=== PATIENT | female | born 1950 | race Caucasian/White ===

== ENCOUNTER 2021-06-20 13:04 | Outpatient (CLI) | payer MEDICARE ==
[2021-06-21 01:33] LABS: SARS-CoV-2 PCR by NAA Not Detected (NotDetected)
== END 2021-06-20 13:05 | disposition home or self-care (01) ==
LOC: CSHLAB 13:04
PROVIDERS: ATTEND Internal Medicine Critical Care Medicine
DX: Z20.822 Contact with and (suspected) exposure to COVID-19 (principal)
CPT/HCPCS: U0003; U0005

== ENCOUNTER 2022-08-18 09:17 | Outpatient (CLI) | payer MEDICARE | END 2022-08-18 09:18 | disposition home or self-care (01) | LOC: CSHWCC 09:17 | PROVIDERS: ATTEND Nurse Practitioner Family | DX: I87.311 Chronic venous hypertension (idiopathic) with ulcer of right lower extremity (principal); L97.819 Non-pressure chronic ulcer of other part of right lower leg with unspecified severity; R60.0 Localized edema | CPT/HCPCS: 11042; 97139; G0463; 99203 ==

== ENCOUNTER 2022-10-01 13:06 | Outpatient (CLI) | payer MEDICARE | END 2022-10-01 13:07 | disposition home or self-care (01) | LOC: CSHWCC 13:06 | PROVIDERS: ATTEND Nurse Practitioner Family | DX: I87.311 Chronic venous hypertension (idiopathic) with ulcer of right lower extremity (principal); L97.819 Non-pressure chronic ulcer of other part of right lower leg with unspecified severity; R60.0 Localized edema ==

== ENCOUNTER 2022-10-16 14:32 | Outpatient (CLI) | payer MEDICARE | END 2022-10-16 14:33 | disposition home or self-care (01) | LOC: CSHWCC 14:32 | PROVIDERS: ATTEND Nurse Practitioner Family | DX: I87.311 Chronic venous hypertension (idiopathic) with ulcer of right lower extremity (principal); L97.819 Non-pressure chronic ulcer of other part of right lower leg with unspecified severity; R60.0 Localized edema ==

== ENCOUNTER 2022-11-21 12:04 | Outpatient (CLI) | payer MEDICARE | END 2022-11-21 12:05 | disposition home or self-care (01) | LOC: CSHWCC 12:04 | PROVIDERS: ATTEND Nurse Practitioner Family | DX: I87.311 Chronic venous hypertension (idiopathic) with ulcer of right lower extremity (principal); L97.819 Non-pressure chronic ulcer of other part of right lower leg with unspecified severity; R60.0 Localized edema ==

== ENCOUNTER 2022-12-05 13:12 | Outpatient (CLI) | payer MEDICARE | END 2022-12-05 13:13 | disposition home or self-care (01) | LOC: CSHWCC 13:12 | PROVIDERS: ATTEND Nurse Practitioner Family | DX: I87.311 Chronic venous hypertension (idiopathic) with ulcer of right lower extremity (principal); L97.819 Non-pressure chronic ulcer of other part of right lower leg with unspecified severity; R60.0 Localized edema | CPT/HCPCS: 29581; 97139; G0463; 99213 ==

== ENCOUNTER 2022-12-05 13:48 | Outpatient (CLI) | payer MEDICARE | END 2022-12-05 13:49 | disposition home or self-care (01) | LOC: CSHWCC 13:48 | PROVIDERS: ATTEND Nurse Practitioner Family | DX: I87.311 Chronic venous hypertension (idiopathic) with ulcer of right lower extremity (principal); L97.819 Non-pressure chronic ulcer of other part of right lower leg with unspecified severity; R60.0 Localized edema | CPT/HCPCS: 29581 ==

== ENCOUNTER 2022-12-19 09:56 | Outpatient (CLI) | payer MEDICARE | END 2022-12-19 09:57 | disposition home or self-care (01) | LOC: CSHWCC 09:56 | PROVIDERS: ATTEND Nurse Practitioner Family | DX: S81.801D Unspecified open wound, right lower leg, subsequent encounter (principal); S91.104D Unspecified open wound of right lesser toe(s) without damage to nail, subsequent encounter; R60.0 Localized edema | CPT/HCPCS: 29581 ==

== ENCOUNTER 2023-01-26 04:20 | Inpatient (IN) | payer MEDICARE ==
[2023-01-26] MEDS ORDERED: diphenhydrAMINE 50 MG/ML VIAL ONE (04:38)
[2023-01-26 04:50] LABS: #Eosinphils 0.2 10x3/uL (0.0-0.5); #Monocytes 0.6 10x3/uL (0.0-1.1); #Neutrophils 6.4 10x3/uL (1.5-8.4); %Basophils 0.2 % (0.0-2.0); %Eosinophils 2.8 % (0.0-6.0); %Lymphocytes 15.9 % (18.0-47.0); %Monocytes 7.2 % (0.0-10.0); %Neutrophils 73.4 % (40.0-75.0); Hemoglobin 12.7 g/dL (12.0-15.5); Mean Corpuscular HGB CONC 32.5 g/dL (32.0-36.0); Mean Corpuscular Hemoglobin 27.4 pg (27.0-33.0); Mean Corpuscular Volume 84.3 fl (81.6-98.3); Mean Platelet Volume 10.2 fl (7.4-10.4); Platelet Count 266 10x3/uL (150-450); RBC Distribution Width 16.1 % (11.5-14.5); Red Blood Cell (RBC) Count 4.64 10x6/uL (3.90-5.03); White Blood Cell (WBC) Count 8.7 10x3/uL (3.5-10.5)
[2023-01-26 05:06] LABS: PTT 25.6 sec (22.0-33.0); Prothrombin Time 10.5 sec (9.5-12.1)
[2023-01-26 05:11] LABS: ALT (SGPT) 13 U/L (8-55); AST (SGOT) 13 U/L (5-34); Albumin 3.5 g/dL (3.4-4.8); Alkaline Phosphatase 81 U/L (40-110); Anion Gap 17 mmol/L (10-20); BUN (Urea Nitrogen) 16 mg/dL (9.8-20.1); Calc. Creatinine Clearance 0 mL/min (70-130); Calcium 9.2 mg/dL (7.8-10.44); Carbon Dioxide 27 mmol/L (23-31); Chloride 100 mmol/L (98-107); Estimated GFR 86; Globulin 2.3 g/dL (2.4-3.5); Glucose 104 mg/dL (83-110); Potassium 4.3 mmol/L (3.5-5.1); Protein, Total 5.8 g/dL (5.8-8.1); Sodium 140 mmol/L (136-145)
[2023-01-26] MEDS ORDERED: Heparin 5,000 UNITS/ML VIAL ONE (05:17)
[2023-01-26] MEDS ORDERED: Heparin 1,000 UNITS/ML VIAL ONE (05:18)
[2023-01-26] MEDS ORDERED: Heparin 25,000 units/D5W 500 ML ONE (05:18)
[2023-01-26] MEDS ORDERED: Ondansetron ODT 4 MG TAB PO PRN ×2 (08:14→12:54)
[2023-01-26] MEDS ORDERED: Ondansetron PF 4 MG/2 ML Vial IVP PRN (08:14)
[2023-01-26] MEDS ORDERED: Heparin 10,000 UNITS/ 10 ML VIAL SLOW IVP SCH (08:30)
[2023-01-26 08:43] VITALS: BMI 36.2
[2023-01-26] MEDS: Heparin 25,000 units/D5W 500 ML IVPB SCH (09:00)
[2023-01-26 09:24] LABS: Hemoglobin 12.3 g/dL (12.0-15.5); Platelet Count 299 10x3/uL (150-450)
[2023-01-26] MEDS ORDERED: HYDROcodone/Acetaminophen 5/325 mg Tablet PO PRN (09:29)
[2023-01-26] MEDS ORDERED: Iopamidol 370 76% 100 ML VIAL ONE (09:46)
[2023-01-26] MEDS ORDERED: tiZANidine HCl 4 MG TAB PO PRN (10:32)
[2023-01-26] MEDS ORDERED: Furosemide 40 MG TAB PO SCH (10:45)
[2023-01-26] MEDS: Raloxifene 60 MG TAB PO SCH (11:53)
[2023-01-26] MEDS ORDERED: Diphenoxylate HCl/Atropine Tablet PO PRN (12:51)
[2023-01-26] MEDS ORDERED: HYDROcodone/Acetaminophen 10/325 mg Tablet PO PRN (12:51)
[2023-01-26] MEDS: Gabapentin 300 MG CAP PO SCH ×2 (14:10→20:38)
[2023-01-26] MEDS: Pramipexole Di-HCl 1 MG TAB PO SCH ×2 (14:44→20:38)
[2023-01-26] MEDS: Acetaminophen 325 MG TAB PO PRN (18:09)
[2023-01-26] MEDS ORDERED: Lidocaine 4% Patch TD SCH (19:30)
[2023-01-26] MEDS: DULoxetine 20 MG CAP PO SCH (20:38)
[2023-01-26] MEDS: Atorvastatin Calcium 10 MG TAB PO SCH (20:38)
[2023-01-27 01:28] LABS: #Eosinphils 0.3 10x3/uL (0.0-0.5); #Monocytes 0.5 10x3/uL (0.0-1.1); #Neutrophils 3.9 10x3/uL (1.5-8.4); %Basophils 0.3 % (0.0-2.0); %Lymphocytes 20.5 % (18.0-47.0); %Monocytes 8.4 % (0.0-10.0); %Neutrophils 65.1 % (40.0-75.0); Hemoglobin 11.6 g/dL (12.0-15.5); Mean Corpuscular HGB CONC 32.4 g/dL (32.0-36.0); Mean Corpuscular Hemoglobin 27.5 pg (27.0-33.0); Mean Corpuscular Volume 84.8 fl (81.6-98.3); Mean Platelet Volume 9.8 fl (7.4-10.4); Platelet Count 275 10x3/uL (150-450); RBC Distribution Width 16.2 % (11.5-14.5); Red Blood Cell (RBC) Count 4.22 10x6/uL (3.90-5.03)
[2023-01-27 01:42] LABS: Anion Gap 14 mmol/L (10-20); BUN (Urea Nitrogen) 11 mg/dL (9.8-20.1); Calc. Creatinine Clearance 103 mL/min (70-130); Calcium 8.7 mg/dL (7.8-10.44); Carbon Dioxide 29 mmol/L (23-31); Chloride 101 mmol/L (98-107); Estimated GFR 92; Glucose 107 mg/dL (83-110); Potassium 3.8 mmol/L (3.5-5.1); Sodium 140 mmol/L (136-145)
[2023-01-27] MEDS: Heparin 25,000 units/D5W 500 ML IVPB SCH (03:27)
[2023-01-27] MEDS: DULoxetine 20 MG CAP PO SCH ×2 (10:15→23:38)
[2023-01-27] MEDS: Saccharomyces boulardii 250 MG CAP PO SCH (10:16)
[2023-01-27] MEDS: Gabapentin 300 MG CAP PO SCH ×3 (10:16→23:37)
[2023-01-27] MEDS: Raloxifene 60 MG TAB PO SCH (10:17)
[2023-01-27] MEDS: Furosemide 40 MG TAB PO SCH (10:17)
[2023-01-27] MEDS: Torsemide 20 MG TAB PO SCH (10:18)
[2023-01-27] MEDS: Pramipexole Di-HCl 1 MG TAB PO SCH ×3 (10:18→23:37)
[2023-01-27] MEDS: Ferrous Sulfate 325 MG TAB PO SCH (10:24)
[2023-01-27] MEDS ORDERED: Communication Order-Pharmacy FS SCH (14:35)
[2023-01-27 15:08] LABS: Hemoglobin 13.1 g/dL (12.0-15.5); Platelet Count 293 10x3/uL (150-450)
[2023-01-27] MEDS: Acetaminophen 325 MG TAB PO PRN (16:19)
[2023-01-27] MEDS: Atorvastatin Calcium 10 MG TAB PO SCH (23:38)
[2023-01-28 05:50] LABS: #Eosinphils 0.4 10x3/uL (0.0-0.5); #Monocytes 0.4 10x3/uL (0.0-1.1); #Neutrophils 3.5 10x3/uL (1.5-8.4); %Basophils 0.4 % (0.0-2.0); %Eosinophils 6.4 % (0.0-6.0); %Lymphocytes 22.9 % (18.0-47.0); %Monocytes 7.6 % (0.0-10.0); Hemoglobin 12.3 g/dL (12.0-15.5); Mean Corpuscular HGB CONC 32.5 g/dL (32.0-36.0); Mean Corpuscular Hemoglobin 27.2 pg (27.0-33.0); Mean Corpuscular Volume 83.7 fl (81.6-98.3); Mean Platelet Volume 9.4 fl (7.4-10.4); Platelet Count 304 10x3/uL (150-450); RBC Distribution Width 15.8 % (11.5-14.5); Red Blood Cell (RBC) Count 4.53 10x6/uL (3.90-5.03); White Blood Cell (WBC) Count 5.6 10x3/uL (3.5-10.5)
[2023-01-28 06:05] LABS: Anion Gap 16 mmol/L (10-20); BUN (Urea Nitrogen) 14 mg/dL (9.8-20.1); Calc. Creatinine Clearance 101 mL/min (70-130); Calcium 9.2 mg/dL (7.8-10.44); Carbon Dioxide 29 mmol/L (23-31); Chloride 98 mmol/L (98-107); Estimated GFR 91; Glucose 94 mg/dL (83-110); Potassium 3.8 mmol/L (3.5-5.1); Sodium 139 mmol/L (136-145)
[2023-01-28 08:40] LABS: Hemoglobin 12.1 g/dL (12.0-15.5); Platelet Count 317 10x3/uL (150-450)
[2023-01-28] MEDS: Ferrous Sulfate 325 MG TAB PO SCH (09:07)
[2023-01-28] MEDS: Gabapentin 300 MG CAP PO SCH ×3 (09:07→21:48)
[2023-01-28] MEDS: Furosemide 40 MG TAB PO SCH (09:08)
[2023-01-28] MEDS: Saccharomyces boulardii 250 MG CAP PO SCH (09:08)
[2023-01-28] MEDS: Torsemide 20 MG TAB PO SCH (09:09)
[2023-01-28] MEDS: Pramipexole Di-HCl 1 MG TAB PO SCH ×3 (09:11→21:57)
[2023-01-28] MEDS: DULoxetine 20 MG CAP PO SCH ×2 (09:16→21:57)
[2023-01-28] MEDS: Transdermal Patch Removal TOP SCH (09:19)
[2023-01-28] MEDS: Raloxifene 60 MG TAB PO SCH (13:17)
[2023-01-28] MEDS: Apixaban 5 MG TAB PO SCH (21:48)
[2023-01-28] MEDS: Atorvastatin Calcium 10 MG TAB PO SCH (21:49)
[2023-01-28] MEDS: Acetaminophen 325 MG TAB PO PRN (21:56)
[2023-01-28] MEDS: Lidocaine 4% Patch TD PRN (22:02)
[2023-01-29 05:33] LABS: #Eosinphils 0.3 10x3/uL (0.0-0.5); #Monocytes 0.5 10x3/uL (0.0-1.1); #Neutrophils 3.3 10x3/uL (1.5-8.4); %Basophils 0.4 % (0.0-2.0); %Eosinophils 5.5 % (0.0-6.0); %Lymphocytes 22.9 % (18.0-47.0); %Monocytes 9.4 % (0.0-10.0); %Neutrophils 61.1 % (40.0-75.0); Hemoglobin 12.3 g/dL (12.0-15.5); Mean Corpuscular HGB CONC 32.3 g/dL (32.0-36.0); Mean Corpuscular Hemoglobin 27.3 pg (27.0-33.0); Mean Corpuscular Volume 84.7 fl (81.6-98.3); Mean Platelet Volume 9.5 fl (7.4-10.4); Platelet Count 345 10x3/uL (150-450); RBC Distribution Width 15.8 % (11.5-14.5); White Blood Cell (WBC) Count 5.4 10x3/uL (3.5-10.5)
[2023-01-29 05:47] LABS: Anion Gap 17 mmol/L (10-20); BUN (Urea Nitrogen) 16 mg/dL (9.8-20.1); Calc. Creatinine Clearance 101 mL/min (70-130); Calcium 9.1 mg/dL (7.8-10.44); Carbon Dioxide 28 mmol/L (23-31); Chloride 98 mmol/L (98-107); Estimated GFR 91; Glucose 99 mg/dL (83-110); Potassium 3.5 mmol/L (3.5-5.1); Sodium 139 mmol/L (136-145)
[2023-01-29] MEDS: Apixaban 5 MG TAB PO SCH ×2 (09:12→20:18)
[2023-01-29] MEDS: Pramipexole Di-HCl 1 MG TAB PO SCH ×3 (09:12→20:19)
[2023-01-29] MEDS: Furosemide 40 MG TAB PO SCH (09:13)
[2023-01-29] MEDS: DULoxetine 20 MG CAP PO SCH ×2 (09:13→20:18)
[2023-01-29] MEDS: Saccharomyces boulardii 250 MG CAP PO SCH (09:14)
[2023-01-29] MEDS: Ferrous Sulfate 325 MG TAB PO SCH (09:14)
[2023-01-29] MEDS: Gabapentin 300 MG CAP PO SCH ×3 (09:15→20:19)
[2023-01-29] MEDS: Transdermal Patch Removal TOP SCH (09:16)
[2023-01-29] MEDS: Torsemide 20 MG TAB PO SCH (09:18)
[2023-01-29] MEDS: Raloxifene 60 MG TAB PO SCH (13:33)
[2023-01-29] MEDS: Acetaminophen 325 MG TAB PO PRN (16:10)
[2023-01-29] MEDS: Atorvastatin Calcium 10 MG TAB PO SCH (20:18)
[2023-01-29] MEDS: Lidocaine 4% Patch TD PRN (20:19)
[2023-01-30 04:06] LABS: #Eosinphils 0.3 10x3/uL (0.0-0.5); #Monocytes 0.5 10x3/uL (0.0-1.1); #Neutrophils 3.6 10x3/uL (1.5-8.4); %Basophils 0.4 % (0.0-2.0); %Eosinophils 5.6 % (0.0-6.0); %Lymphocytes 22.1 % (18.0-47.0); %Monocytes 8.1 % (0.0-10.0); %Neutrophils 63.3 % (40.0-75.0); Hemoglobin 11.8 g/dL (12.0-15.5); Mean Corpuscular HGB CONC 31.9 g/dL (32.0-36.0); Mean Corpuscular Hemoglobin 26.9 pg (27.0-33.0); Mean Corpuscular Volume 84.3 fl (81.6-98.3); Mean Platelet Volume 9.4 fl (7.4-10.4); Platelet Count 331 10x3/uL (150-450); RBC Distribution Width 15.7 % (11.5-14.5); Red Blood Cell (RBC) Count 4.39 10x6/uL (3.90-5.03); White Blood Cell (WBC) Count 5.7 10x3/uL (3.5-10.5)
[2023-01-30 04:10] LABS: Anion Gap 15 mmol/L (10-20); BUN (Urea Nitrogen) 17 mg/dL (9.8-20.1); Calc. Creatinine Clearance 97 mL/min (70-130); Calcium 9.2 mg/dL (7.8-10.44); Carbon Dioxide 28 mmol/L (23-31); Chloride 100 mmol/L (98-107); Estimated GFR 90; Glucose 97 mg/dL (83-110); Potassium 3.8 mmol/L (3.5-5.1); Sodium 139 mmol/L (136-145)
[2023-01-30] MEDS: Ferrous Sulfate 325 MG TAB PO SCH (08:33)
[2023-01-30 08:55] LABS: Hemoglobin 12.7 g/dL (12.0-15.5); Platelet Count 335 10x3/uL (150-450)
[2023-01-30] MEDS: Torsemide 20 MG TAB PO SCH (09:19)
[2023-01-30] MEDS: DULoxetine 20 MG CAP PO SCH (09:19)
[2023-01-30] MEDS: Apixaban 5 MG TAB PO SCH (09:33)
[2023-01-30] MEDS: Furosemide 40 MG TAB PO SCH (09:34)
[2023-01-30] MEDS: Gabapentin 300 MG CAP PO SCH (09:35)
[2023-01-30] MEDS: Saccharomyces boulardii 250 MG CAP PO SCH (09:36)
[2023-01-30] MEDS: Pramipexole Di-HCl 1 MG TAB PO SCH (09:36)
[2023-01-30] MEDS: Transdermal Patch Removal TOP SCH (10:39)
[2023-01-30 12:23] VITALS: BP 113/64; TEMP 97.1
[2023-01-30] MEDS: Raloxifene 60 MG TAB PO SCH (13:19)
== END 2023-01-30 14:45 | DRG 176 ==
LOC: CSHERS 04:20 → SUATTDRO 04:20 → CSHERHOLD 07:22 → CSHTELE 08:29
PROVIDERS: ADMIT Family Medicine; ATTEND Internal Medicine
DX: I26.99 Other pulmonary embolism without acute cor pulmonale (principal); I50.32 Chronic diastolic (congestive) heart failure; E78.00 Pure hypercholesterolemia, unspecified; G89.29 Other chronic pain; I11.0 Hypertensive heart disease with heart failure; K21.9 Gastro-esophageal reflux disease without esophagitis; Z90.710 Acquired absence of both cervix and uterus; M19.09 Primary osteoarthritis, other specified site; Z90.49 Acquired absence of other specified parts of digestive tract; Z98.890 Other specified postprocedural states; Z98.51 Tubal ligation status; Z88.8 Allergy status to other drugs, medicaments and biological substances; Z79.899 Other long term (current) drug therapy
CPT/HCPCS: 36415; 71275; 80048; 80053; 83880; 84484; 85025; 85610; 85730; 93005; 93306; 93970; 94760; 94762; 97139; J1200; J1644; J1650; Q9967

== ENCOUNTER 2023-02-18 10:32 | Outpatient (CLI) | payer MEDICARE | END 2023-02-18 10:33 | disposition home or self-care (01) | LOC: CSHWCC 10:32 | PROVIDERS: ATTEND Nurse Practitioner Family | DX: S81.801D Unspecified open wound, right lower leg, subsequent encounter (principal); S91.104D Unspecified open wound of right lesser toe(s) without damage to nail, subsequent encounter; R60.0 Localized edema | CPT/HCPCS: 99213; G0463 ==

== ENCOUNTER 2025-05-01 14:43 | Outpatient (CLI) | payer MEDICARE | END 2025-05-01 14:44 | disposition home or self-care (01) | LOC: CSHWCC 14:43 | PROVIDERS: ATTEND Nurse Practitioner Family | DX: I87.332 Chronic venous hypertension (idiopathic) with ulcer and inflammation of left lower extremity (principal); L97.822 Non-pressure chronic ulcer of other part of left lower leg with fat layer exposed; I89.0 Lymphedema, not elsewhere classified; I73.9 Peripheral vascular disease, unspecified; L08.9 Local infection of the skin and subcutaneous tissue, unspecified; Z86.718 Personal history of other venous thrombosis and embolism | CPT/HCPCS: 11042; 15271; G0463; Q4133; 99213 ==

== ENCOUNTER 2025-05-09 13:50 | Outpatient (CLI) | payer MEDICARE | END 2025-05-09 13:51 | disposition home or self-care (01) | LOC: CSHWCC 13:50 | PROVIDERS: ATTEND Nurse Practitioner Family | DX: I87.332 Chronic venous hypertension (idiopathic) with ulcer and inflammation of left lower extremity (principal); L97.812 Non-pressure chronic ulcer of other part of right lower leg with fat layer exposed; L97.822 Non-pressure chronic ulcer of other part of left lower leg with fat layer exposed; I89.0 Lymphedema, not elsewhere classified; I73.9 Peripheral vascular disease, unspecified; Z86.718 Personal history of other venous thrombosis and embolism | CPT/HCPCS: 11042; 15271; Q4133 ==

== ENCOUNTER 2025-05-15 14:45 | Outpatient (CLI) | payer MEDICARE | END 2025-05-15 14:46 | disposition home or self-care (01) | LOC: CSHWCC 14:45 | PROVIDERS: ATTEND Nurse Practitioner Family | DX: I87.333 Chronic venous hypertension (idiopathic) with ulcer and inflammation of bilateral lower extremity (principal); L97.812 Non-pressure chronic ulcer of other part of right lower leg with fat layer exposed; L97.822 Non-pressure chronic ulcer of other part of left lower leg with fat layer exposed; I89.0 Lymphedema, not elsewhere classified; I73.9 Peripheral vascular disease, unspecified; Z86.718 Personal history of other venous thrombosis and embolism | CPT/HCPCS: 11042; 15271; Q4133 ==

== ENCOUNTER 2025-05-22 09:05 | Outpatient (CLI) | payer MEDICARE | END 2025-05-22 09:06 | disposition home or self-care (01) | LOC: CSHWCC 09:05 | PROVIDERS: ATTEND Nurse Practitioner Family | DX: I87.333 Chronic venous hypertension (idiopathic) with ulcer and inflammation of bilateral lower extremity (principal); L97.812 Non-pressure chronic ulcer of other part of right lower leg with fat layer exposed; L97.822 Non-pressure chronic ulcer of other part of left lower leg with fat layer exposed; I89.0 Lymphedema, not elsewhere classified; I73.9 Peripheral vascular disease, unspecified; Z86.718 Personal history of other venous thrombosis and embolism | CPT/HCPCS: 15271; Q4133 ==

== ENCOUNTER 2025-05-29 14:57 | Outpatient (CLI) | payer MEDICARE | END 2025-05-29 14:58 | disposition home or self-care (01) | LOC: CSHWCC 14:57 | PROVIDERS: ATTEND Nurse Practitioner Family | DX: I87.332 Chronic venous hypertension (idiopathic) with ulcer and inflammation of left lower extremity (principal); L97.822 Non-pressure chronic ulcer of other part of left lower leg with fat layer exposed; I89.0 Lymphedema, not elsewhere classified; I73.9 Peripheral vascular disease, unspecified; Z86.718 Personal history of other venous thrombosis and embolism ==

== ENCOUNTER 2025-06-07 13:41 | Outpatient (CLI) | payer MEDICARE | END 2025-06-07 13:42 | disposition home or self-care (01) | LOC: CSHWCC 13:41 | PROVIDERS: ATTEND Nurse Practitioner Family | DX: I87.332 Chronic venous hypertension (idiopathic) with ulcer and inflammation of left lower extremity (principal); L97.822 Non-pressure chronic ulcer of other part of left lower leg with fat layer exposed; I89.0 Lymphedema, not elsewhere classified; I73.9 Peripheral vascular disease, unspecified; Z86.718 Personal history of other venous thrombosis and embolism | CPT/HCPCS: 15271; Q4133 ==

== ENCOUNTER 2025-06-12 13:35 | Outpatient (CLI) | payer MEDICARE | END 2025-06-12 13:36 | disposition home or self-care (01) | LOC: CSHWCC 13:35 | PROVIDERS: ATTEND Nurse Practitioner Family | DX: I87.332 Chronic venous hypertension (idiopathic) with ulcer and inflammation of left lower extremity (principal); L97.822 Non-pressure chronic ulcer of other part of left lower leg with fat layer exposed; I89.0 Lymphedema, not elsewhere classified; I73.9 Peripheral vascular disease, unspecified; Z86.718 Personal history of other venous thrombosis and embolism | CPT/HCPCS: 15271; Q4133 ==

== ENCOUNTER 2025-06-19 14:43 | Outpatient (CLI) | payer MEDICARE | END 2025-06-19 14:44 | disposition home or self-care (01) | LOC: CSHWCC 14:43 | PROVIDERS: ATTEND Nurse Practitioner Family | DX: I87.332 Chronic venous hypertension (idiopathic) with ulcer and inflammation of left lower extremity (principal); L97.822 Non-pressure chronic ulcer of other part of left lower leg with fat layer exposed; I73.9 Peripheral vascular disease, unspecified; I89.0 Lymphedema, not elsewhere classified; Z86.718 Personal history of other venous thrombosis and embolism | CPT/HCPCS: 15271; Q4133 ==

== ENCOUNTER 2025-06-26 14:24 | Outpatient (CLI) | payer MEDICARE | END 2025-06-26 14:25 | disposition home or self-care (01) | LOC: CSHWCC 14:24 | PROVIDERS: ATTEND Nurse Practitioner Family | DX: I87.332 Chronic venous hypertension (idiopathic) with ulcer and inflammation of left lower extremity (principal); L97.822 Non-pressure chronic ulcer of other part of left lower leg with fat layer exposed; I73.9 Peripheral vascular disease, unspecified; I89.0 Lymphedema, not elsewhere classified; Z86.718 Personal history of other venous thrombosis and embolism | CPT/HCPCS: 15271; Q4133 ==

== ENCOUNTER 2025-07-17 13:44 | Outpatient (CLI) | payer MEDICARE | END 2025-07-17 13:45 | disposition home or self-care (01) | LOC: CSHWCC 13:44 | PROVIDERS: ATTEND Nurse Practitioner Family | DX: I87.332 Chronic venous hypertension (idiopathic) with ulcer and inflammation of left lower extremity (principal); L97.822 Non-pressure chronic ulcer of other part of left lower leg with fat layer exposed; I73.9 Peripheral vascular disease, unspecified; I89.0 Lymphedema, not elsewhere classified; Z86.718 Personal history of other venous thrombosis and embolism | CPT/HCPCS: 11042 ==

== ENCOUNTER 2025-07-24 13:26 | Outpatient (CLI) | payer MEDICARE | END 2025-07-24 13:27 | disposition home or self-care (01) | LOC: CSHWCC 13:26 | PROVIDERS: ATTEND Nurse Practitioner Family | DX: I87.332 Chronic venous hypertension (idiopathic) with ulcer and inflammation of left lower extremity (principal); L97.822 Non-pressure chronic ulcer of other part of left lower leg with fat layer exposed; I89.0 Lymphedema, not elsewhere classified; I73.9 Peripheral vascular disease, unspecified; Z86.718 Personal history of other venous thrombosis and embolism | CPT/HCPCS: 11042 ==

== ENCOUNTER 2025-07-31 14:07 | Outpatient (CLI) | payer MEDICARE | END 2025-07-31 14:08 | disposition home or self-care (01) | LOC: CSHWCC 14:07 | PROVIDERS: ATTEND Nurse Practitioner Family | DX: I87.332 Chronic venous hypertension (idiopathic) with ulcer and inflammation of left lower extremity (principal); L97.822 Non-pressure chronic ulcer of other part of left lower leg with fat layer exposed; I89.0 Lymphedema, not elsewhere classified; I73.9 Peripheral vascular disease, unspecified; Z86.718 Personal history of other venous thrombosis and embolism | CPT/HCPCS: 11042; 11045; G0463; 99213 ==

== ENCOUNTER 2025-08-21 13:42 | Outpatient (CLI) | payer MEDICARE | END 2025-08-21 13:43 | disposition home or self-care (01) | LOC: CSHWCC 13:42 | PROVIDERS: ATTEND Nurse Practitioner Family | DX: I87.332 Chronic venous hypertension (idiopathic) with ulcer and inflammation of left lower extremity (principal); L97.822 Non-pressure chronic ulcer of other part of left lower leg with fat layer exposed; I89.0 Lymphedema, not elsewhere classified; I73.9 Peripheral vascular disease, unspecified; Z86.718 Personal history of other venous thrombosis and embolism | CPT/HCPCS: 11042; 11045 ==

== ENCOUNTER 2025-08-23 09:03 | Outpatient (CLI) | payer MEDICARE | END 2025-08-23 09:04 | disposition home or self-care (01) | LOC: CSHSLEEP 09:03 | PROVIDERS: ATTEND Internal Medicine Critical Care Medicine | DX: G47.33 Obstructive sleep apnea (adult) (pediatric) (principal); R53.83 Other fatigue; R06.83 Snoring; G47.61 Periodic limb movement disorder; R09.02 Hypoxemia | CPT/HCPCS: 95811 ==

== ENCOUNTER 2025-08-28 13:48 | Outpatient (CLI) | payer MEDICARE | END 2025-08-28 13:49 | disposition home or self-care (01) | LOC: CSHWCC 13:48 | PROVIDERS: ATTEND Nurse Practitioner Family | DX: I87.332 Chronic venous hypertension (idiopathic) with ulcer and inflammation of left lower extremity (principal); L97.822 Non-pressure chronic ulcer of other part of left lower leg with fat layer exposed; I89.0 Lymphedema, not elsewhere classified; I73.9 Peripheral vascular disease, unspecified; Z86.718 Personal history of other venous thrombosis and embolism | CPT/HCPCS: 11042; 11045; G0463; 99214 ==

== ENCOUNTER 2025-09-04 13:51 | Outpatient (CLI) | payer MEDICARE | END 2025-09-04 13:52 | disposition home or self-care (01) | LOC: CSHWCC 13:51 | PROVIDERS: ATTEND Nurse Practitioner Family | DX: L89.893 Pressure ulcer of other site, stage 3 (principal); I87.332 Chronic venous hypertension (idiopathic) with ulcer and inflammation of left lower extremity; L97.822 Non-pressure chronic ulcer of other part of left lower leg with fat layer exposed; I89.0 Lymphedema, not elsewhere classified; I73.9 Peripheral vascular disease, unspecified; Z86.718 Personal history of other venous thrombosis and embolism | CPT/HCPCS: 11042; 11045; 99213; G0463 ==

== ENCOUNTER 2025-10-02 13:13 | Outpatient (CLI) | payer MEDICARE | END 2025-10-02 13:14 | disposition home or self-care (01) | LOC: CSHWCC 13:13 | PROVIDERS: ATTEND Nurse Practitioner Family | DX: L89.893 Pressure ulcer of other site, stage 3 (principal); I87.332 Chronic venous hypertension (idiopathic) with ulcer and inflammation of left lower extremity; L97.822 Non-pressure chronic ulcer of other part of left lower leg with fat layer exposed; I89.0 Lymphedema, not elsewhere classified; I73.9 Peripheral vascular disease, unspecified; L08.9 Local infection of the skin and subcutaneous tissue, unspecified; Z86.718 Personal history of other venous thrombosis and embolism | CPT/HCPCS: 11042; 11045; 87070; 87077; 87186; 87205; G0463; 99214 ==